=== PATIENT | male | born 1995 | race Caucasian/White ===

== ENCOUNTER 2017-01-01 08:45 | Emergency (ER) | payer OTHER ==
[2017-01-01 08:50] VITALS: O2SAT 94
[2017-01-01] MEDS ORDERED: ACETAMINOPHEN 500 MG TAB PO ONE (08:50)
--- NOTE | 2017-01-01 09:37 | EDPHY ---
H & P Stated Complaint: cough, conges., st, fatigue, fever since thur. neg workup at urgent care [facility] - Personal History Current Tetanus/Diphtheria Vaccine: Yes Current Tetanus Diphtheria and Acellular Pertussis (TDAP): Yes - Medical/Surgical History Hx Asthma: No Hx Chronic Respiratory Disease: No Hx Diabetes: No Hx Cardiac Disease: No Hx Renal Disease: No Hx Cirrhosis: No Hx Alcoholism: No Hx HIV/AIDS: No Hx Splenectomy or Spleen Trauma: No Other PMH: denies - Social History Smoking Status: Never smoked HPI/ROS: Chief complaint: Cold symptoms History of present illness: This is a 21-year-old male who presents to the emergency department for cold symptoms. Patient reports he has been sick for the last 4 days. He reports fevers, sore throat, cough and trouble breathing and generalized malaise. He was seen at urgent care yesterday and reports a strep swab, flu swab and Monospot were all negative. He has been treating symptoms at home with ibuprofen but continues to feel unwell. He denies other associated signs or symptoms including no headache or neck pain, no rash. Review of systems: A 10 point review of systems was obtained and other than described above was negative (Moises Rolon) - Physical Exam Exam: General Appearance: Alert, nontoxic. Eyes: Pupils equal and round no injection. ENT:Tympanic membranes, external auditory canals, external ears and surrounding soft tissue including over the mastoids are unremarkable. Nasopharynx is not injected. There is no rhinorrhea. Oropharynx is injected. There is mild edema. There is no exudate. There is no asymmetry. The uvula is midline. No elevation of the tongue. There is no hoarseness, no drooling, no trismus, no stridor. Respiratory: Chest is non tender, lungs are clear to auscultation. Cardiac: regular rate and rhythm Gastrointestinal: Abdomen is soft and non tender, no masses, bowel sounds normal. Musculoskeletal: Neck is supple and non tender. Extremities have full range of motion and are non tender. Skin: No rashes or lesions. (Moises Rolon) Constitutional: Initial Vital Signs Temperature (C) 38.4 C H 01/01/17 08:46 Heart Rate 120 H 01/01/17 08:46 Respiratory Rate 20 01/01/17 08:46 Blood Pressure 135/96 H 01/01/17 08:46 O2 Sat (%) 94 01/01/17 08:46 O2 Delivery Mode Room Air Allergies/Adverse Reactions: No Known Allergies Allergy (Unverified 01/01/17 08:47) Home Medications: Medication Instructions Recorded Guaifenesin/Codeine Phosphate 10 ml PO Q6 #120 liquid 01/01/17 [Codeine-Guaifen 10-100 mg/5 ml] Medical Decision Making ED Course/Re-evaluation: Patient seen under the supervision of my secondary supervising physician Dr. Mc Mccoy. Patient presents to the emergency department for evaluation of cold symptoms. Patient is nontoxic. Minimal findings on physical exam. Strep swab is negative. Chest x-ray is negative. I believe this is likely a viral syndrome. I do not believe antibiotics are warranted at this time. Patient will be discharged home. Home care is discussed. He is asked to follow up with primary care doctor or student [facility] for continued evaluation and care this week. Strict return precautions are given. Patient voiced understanding and agreement with plan. (Moises Rolon) Differential Diagnosis: Included but not limited to pharyngitis, tonsillitis, sinusitis, bronchitis, pneumonia, influenza (Moises Rolon) - Data Points Laboratory Results: 01/01/17 09:10 Group A Strep Screen NEGATIVE (NEGATIVE) Medications Given: Discontinued Medications Acetaminophen (Tylenol) 1,000 mg PO EDNOW ONE Stop: 01/01/17 08:51 Last Admin: 01/01/17 08:53 Dose: 1,000 mg Departure - Departure Disposition: Home, Routine, Self-Care Clinical Impression: Viral syndrome Condition: Good Instructions: Viral Syndrome (ED) Additional Instructions: Follow-up with [facility] her primary care doctor in the next 1-2 days for recheck Drink plenty of fluids to stay hydrated Use [id number] ibuprofen 600 mg 3 times daily for the next 2-3 days The cough syrup may make you tired If symptoms worsen or new symptoms develop return to the emergency department for recheck Referrals: NONE *PRIMARY CARE P,. [Primary Care Provider] - As per Instructions Jonas Vazquez MD [Medical Doctor] - As per Instructions Stand Alone Forms: School Excuse Prescriptions: Guaifenesin/Codeine Phosphate [Codeine-Guaifen 10-100 mg/5 ml] 10 ml PO Q6 #120 liquid
[2017-01-01 09:44] VITALS: BP 133/69; PULSE 100; RESP 16; TEMP 99
== END 2017-01-01 10:16 | disposition home or self-care (01) ==
DX: B34.9 Viral infection, unspecified (principal)